=== PATIENT | female | born 1985 | race Caucasian/White ===

== ENCOUNTER 2017-03-07 11:00 | Outpatient (RCR) | payer OTHER, MEDICAID ==
--- NOTE | 2017-02-06 12:29 | Diagnostic Imaging Report ---
INDICATION: Gestational diabetes. TECHNIQUE: Multiple real-time grayscale images were obtained over the gravid uterus. COMPARISON: No prior examinations are available for comparison. FINDINGS: There is a single living intrauterine in a cephalic presentation. The placenta is posterior. There is no previa. The amniotic fluid index is 7.2. The biometry correlates with a gestational age of 32 weeks 6 days. The heart rate is 133 beats per minute. biophysical profile score is 8/8. Biometrical measurements are as follows: Biparietal 8.2 cm, age 32 weeks 6 days. Head circumference 29.6 cm, age 32 weeks 6 days. Abdominal circumference 28.4 cm, age 32 weeks 4 days. Femur length 6.3 cm, age 32 weeks 5 days. Sonographic estimate age: 32 weeks 6 days. Sonographic estimated date of delivery: 03/28/17. Estimated Weight: 2005 gm (+/- 293 gm). LMP percentile: 32%. heart rate: 133 beats per minute. number: 1 of 1. IMPRESSION: 1. Single living intrauterine with sonographically estimated gestational age of 32 weeks 6 days and estimated date of confinement of March 28, 2017. 2. Normal biophysical profile score of 8/8. Dictated by: Dictated on workstation # [id number]
--- NOTE | 2017-02-13 16:11 | Diagnostic Imaging Report ---
INDICATION: Gestational diabetes and biophysical profile assessment. TECHNIQUE: Multiple real-time grayscale images were obtained over the gravid uterus. COMPARISON: 02/06/2017 FINDINGS: heart rate is 128 beats per minute. The placenta is fundal. No placenta previa. position is cephalic. The TI is 7.4 cm. This is similar to 02/06/2017. Biophysical profile parameters are all met for a total of 8 out of 8. The maternal adnexa are obscured. Biometrical measurements are as follows: Biparietal 8.58 cm, age 34 weeks 5 days. Head circumference 30.86 cm, age 30.86 weeks 34 days. Abdominal circumference 4 cm, age 29.36 weeks 33 days. Femur length 3 cm, age 6.41 weeks 33 days. Sonographic estimate age: 34 weeks 0 days. Sonographic estimated date of delivery: 03-27-17. Estimated Weight: 2211 gm (+/- 323 gm). LMP percentile: 33%. heart rate: 1 beats per minute. number: 1 of 1. IMPRESSION: Biophysical profile parameters are all met with total score of 8 out of 8. Dictated by: Dictated on workstation # [id number]
--- NOTE | 2017-02-20 15:25 | Diagnostic Imaging Report ---
INDICATION: Followup growth. Gestational diabetes. TECHNIQUE: Multiple real-time grayscale images were obtained over the gravid uterus. COMPARISON: 02/13/2017 FINDINGS: heart rate is 128 beats per minute. The position is cephalic. The placenta is to the right side and no placenta previa is seen. Amniotic fluid index is 7.6 cm. Biophysical profile criteria are all met with total score of 8 out of 8. The maternal adnexa are obscured by the gravid uterus. Biometrical measurements are as follows: Biparietal 8.68 cm, age 35 weeks 1 days. Head circumference 32.07 cm, age 36 weeks 2 days. Abdominal circumference 31.27 cm, age 35 weeks 2 days. Femur length 6.52 cm, age 33 weeks 5 days. Sonographic estimate age: 35 weeks 1 days. Sonographic estimated date of delivery: 03/26/2017. Estimated Weight: 2534 gm (+/- 370 gm). LMP percentile: 46%. heart rate: 128 beats per minute. number: 1 of 1. IMPRESSION: Total biophysical profile score is 8 out of 8. Dictated by: Dictated on workstation # [id number]
--- NOTE | 2017-02-27 13:42 | Diagnostic Imaging Report ---
OB ultrasound. Biophysical profile. Findings: heart rate is 133 beats per minutes. The TI is 6.6 CM. The position is cephalic. The placenta is fundal. No placenta previa. Biophysical profile parameters are all met with total score of 8 out of 8. Impression: Total biophysical profile score is 8 out of 8. The amniotic fluid index is near the lower limits of normal. Dictated by: Dictated on workstation # [id number]
--- NOTE | 2017-03-07 12:43 | Diagnostic Imaging Report ---
INDICATION: Gestational diabetes mellitus. TECHNIQUE: Multiple real-time grayscale images were obtained over the gravid uterus. Fetus observed for purposes of biophysical profile assessment. COMPARISON: 02/20/2017. FINDINGS: Single viable intrauterine , currently in cephalic presentation. The placenta is along the anterior fundal aspect without evidence for previa. There is presence of oligohydramnios with an index at 4.77 cm. This is decreased from prior study. There is otherwise normal biophysical profile scoring 8 out of 8. Biometrical measurements are as follows: Biparietal 8.8 cm, age 35 weeks 3 days. Head circumference 31.9 cm, age 36 weeks 0 days. Abdominal circumference 32.7 cm, age 36 weeks 5 days. Femur length 7.2 cm, age 36 weeks 5 days. Sonographic estimate age: 36 weeks 2 days. Sonographic estimated date of delivery: 04/02/17. Estimated Weight: 2925 gm (+/- 427 gm). LMP percentile: 39%. heart rate: 147 beats per minute. number: 1 of 1. IMPRESSION: 1. Single viable intrauterine in cephalic presentation. 2. Normal biophysical profile scoring 8 out of 8. 3. Presence of borderline oligohydramnios, decreased from prior study. Dictated by: Dictated on workstation # [id number]
[2017-03-08] MEDS ORDERED: PREN-142 PO (22:32)
[2017-03-08] MEDS ORDERED: FERR-84 PO (22:34)
[2017-03-08] MEDS ORDERED: PERM1LIQ MC (22:35)
[2017-03-08] MEDS ORDERED: GLYB2.5T4 PO (22:36)
[2017-03-08] MEDS ORDERED: METF500T4 PO (22:37)
[2017-03-08] MEDS ORDERED: HYDR-700 PO (22:38)
[2017-03-09] MEDS ORDERED: DOCU100C37 PO (09:01)
[2017-03-09] MEDS ORDERED: Hydrocodone Bit/Acetaminophen PO (09:01)
[2017-03-09] MEDS ORDERED: IBUP-1780 PO (09:01)
== END 2017-05-07 | disposition home or self-care (01) ==
LOC: RAD 11:00
PROVIDERS: ATTEND Obstetrics & Gynecology
DX: O24.410 Gestational diabetes mellitus in pregnancy, diet controlled (principal); Z3A.32 32 weeks gestation of pregnancy
CPT/HCPCS: 76805; 76819

== ENCOUNTER 2017-03-08 17:56 | Inpatient (IN) | payer OTHER, MEDICAID ==
[~2017-03-08] VITALS: Ht 152.4 cm; Wt 84.8 kg
[2017-03-08 20:40] VITALS: BP 114/65
[2017-03-08 21:19] LABS: BASOPHILS % (AUTO) 0 % (0-10); EOSINOPHILS # (AUTO) 0.2 10^3/uL (0.0-0.3); EOSINOPHILS % (AUTO) 2 % (0-10); HEMATOCRIT 33 % (35-52); HEMOGLOBIN 11.6 G/DL (11.5-16.0); LYMPHOCYTES % (AUTO) 18 % (12-44); MEAN CORPUSCULAR HEMOGLOBIN 31 PG (25-34); MEAN CORPUSCULAR HGB CONC 36 G/DL (32-36); MEAN CORPUSCULAR VOLUME 86 FL (80-99); MONOCYTES # (AUTO) 0.6 X 10^3 (0.0-1.0); MONOCYTES % (AUTO) 5 % (0-12); NEUTROPHILS # (AUTO) 8.5 X 10^3 (1.8-7.8); NEUTROPHILS % (AUTO) 75 % (42-75); PLATELET COUNT 339 10^3/uL (130-400); RED CELL DISTRIBUTION WIDTH 13.9 % (10.0-14.5); WHITE BLOOD COUNT 11.3 10^3/uL (4.3-11.0)
[2017-03-08] MEDS: NS IV 1000 ML 1,000 ML IV SCH (21:22)
[2017-03-08 21:31] LABS: ALANINE AMINOTRANSFERASE 15 U/L (0-55); ALBUMIN 3.5 GM/DL (3.2-4.5); ALKALINE PHOSPHATASE 133 U/L (40-136); BILIRUBIN,TOTAL 0.4 MG/DL (0.1-1.0); BUN/CREATININE RATIO 14; CALCIUM 9.4 MG/DL (8.5-10.1); CARBON DIOXIDE 18 MMOL/L (21-32); CHLORIDE 106 MMOL/L (98-107); CREATININE SERUM 0.63 MG/DL (0.60-1.30); GFR ESTIMATED > 60; GLUCOSE 98 MG/DL (70-105); POTASSIUM 3.7 MMOL/L (3.6-5.0); SODIUM 137 MMOL/L (135-145); TOTAL PROTEIN 7.3 GM/DL (6.4-8.2)
[2017-03-08] MEDS ORDERED: PREN-142 PO (22:32)
[2017-03-08] MEDS ORDERED: FERR-84 PO (22:34)
[2017-03-08] MEDS ORDERED: PERM1LIQ MC (22:35)
[2017-03-08] MEDS ORDERED: GLYB2.5T4 PO (22:36)
[2017-03-08] MEDS ORDERED: METF500T4 PO (22:37)
[2017-03-08] MEDS ORDERED: HYDR-700 PO (22:38)
[2017-03-09 00:10] VITALS: BP 118/63
[2017-03-09 04:50] VITALS: BP 107/59
[2017-03-09] MEDS: NS IV 1000 ML 1,000 ML IV SCH ×2 (05:00→12:37)
[2017-03-09] MEDS ORDERED: CITRIC ACID/SOB CIT (BICITRA) 30 ML UDC ONE (07:22)
[2017-03-09] MEDS ORDERED: FAMOTIDINE 20MG/2ML IV (PEPCID) ONE (07:22)
[2017-03-09] MEDS ORDERED: ceFAZolin 2 GM/50 ML NS 50 ML ONE (07:22)
[2017-03-09] MEDS ORDERED: METOCLOPRAMIDE INJ 10 MG/2 ML (REGLAN) ONE (07:22)
[2017-03-09] MEDS ORDERED: ONDANSETRON 4 MG/2 ML (SDV) Z0FRAN ONE (07:24)
[2017-03-09] MEDS ORDERED: OXYTOCIN/NORMAL SALINE 1,000 ML IV ONE (07:24)
[2017-03-09] MEDS ORDERED: fentaNYL INJECTION 100 MCG/2 ML AMP ONE (07:25)
--- NOTE | 2017-03-09 07:28 | History & Physical-OB ---
OB - Chief Complaint & HPI Date/Time Date of Admission: Date of Admission: Mar 08, 2017 at 5:56 pm Time Seen by Provider: 07:20 Chief Complaint/History OB-Reason for Admission/Chief: Section Hx : 4 Hx Para: 3 Expected Date of Delivery: Mar 28, 2017 Gestational Age in Weeks: 37 Gestational Age in Days: 2 Indication for : desires repeat Other reason for admission: GDMA2 and Oligohydramnios Admission Nurse Assessment Rev: Yes History of Labs O pos Antibody neg RI RPR NR HBsAg NR HIV NR GC neg GBS neg Allergies and Home Medications Allergies Coded Allergies: No Known Allergies (Verified Allergy, Mild, 11/11/05) Home Medications Ferrous Sulfate 325 Mg Tablet, 325 MG PO DAILY, (Reported) Glyburide 2.5 Mg Tablet, 2.5 MG PO DAILY, (Reported) Hydroxyzine HCl 25 Mg Tablet, 25 MG PO PRN, (Reported) Metformin HCl 500 Mg Tablet, 500 MG PO BID, (Reported) Permethrin 1 Gm Liquid, 1 GM MC ONCE, (Reported) Vit No.124/Iron/FA 1 Each Tablet, 1 EACH PO DAILY, (Reported) OB - History Hx of Present Care: Yes Ultrasounds: Normal mid trimester US, Abnormal US findings (oligohydramnios) Obstetrical Complications: Gestational Diabetes Medical Complications: None Patient Past Medical History n/a Social History/Family History Recent Infectious Disease Expo: No Sexually Transmitted Disease: No Alcohol Use: Denies Use Recreational Drug Use: No OB - Admission Exam Physical Exam Vitals: Vital Signs 03/09/17 04:50 Temp 98.0 Pulse 82 Resp 18 B/P (MAP) 107/59 (75) O2 Delivery Room Air HEENT: NCAT Heart: Rhythm Normal Lungs: Clear Abdomen: Gravid Extremities: Normal Reflexes: Normal Heart Rate: 140's Accelerations: Accelerations Present Decelerations: Variable Decelerations Short Term Variability: Present Wet Process Miller Variability: Average (6-25) Contractions on Admission: 6-10 Minutes Apart Intensity: Mild Labs Laboratory Tests Test 03/08/17 20:40 03/08/17 21:59 03/09/17 06:29 Range/Units White Blood Count 11.3 H 4.3-11.0 10^3/uL Red Blood Count 3.80 L 4.35-5.85 10^6/uL Hemoglobin 11.6 11.5-16.0 G/DL Hematocrit 33 L 35-52 % Mean Corpuscular Volume 86 80-99 FL Mean Corpuscular Hemoglobin 31 25-34 PG Mean Corpuscular Hemoglobin Concent 36 32-36 G/DL Red Cell Distribution Width 13.9 10.0-14.5 % Platelet Count 339 130-400 10^3/uL Mean Platelet Volume 9.0 7.4-10.4 FL Neutrophils (%) (Auto) 75 42-75 % Lymphocytes (%) (Auto) 18 12-44 % Monocytes (%) (Auto) 5 0-12 % Eosinophils (%) (Auto) 2 0-10 % Basophils (%) (Auto) 0 0-10 % Neutrophils # (Auto) 8.5 H 1.8-7.8 X 10^3 Lymphocytes # (Auto) 2.0 1.0-4.0 X 10^3 Monocytes # (Auto) 0.6 0.0-1.0 X 10^3 Eosinophils # (Auto) 0.2 0.0-0.3 10^3/uL Basophils # (Auto) 0.0 0.0-0.1 10^3/uL Sodium Level 137 135-145 MMOL/L Potassium Level 3.7 3.6-5.0 MMOL/L Chloride Level 106 98-107 MMOL/L Carbon Dioxide Level 18 L 21-32 MMOL/L Anion Gap 13 5-14 MMOL/L Blood Urea Nitrogen 9 7-18 MG/DL Creatinine 0.63 0.60-1.30 MG/DL Estimat Glomerular Filtration Rate > 60 BUN/Creatinine Ratio 14 Glucose Level 98 70-105 MG/DL Calcium Level 9.4 8.5-10.1 MG/DL Total Bilirubin 0.4 0.1-1.0 MG/DL Aspartate Amino Transf (AST/SGOT) 17 5-34 U/L Alanine Aminotransferase (ALT/SGPT) 15 0-55 U/L Alkaline Phosphatase 133 40-136 U/L Total Protein 7.3 6.4-8.2 GM/DL Albumin 3.5 3.2-4.5 GM/DL Glucometer 110 96 70-110 MG/DL OB - Assessment/Plan/Diagnosis Assessment Assessment: section Plan Plan: Section Other Plan RLTCS with RRS Discharge Diagnosis Diagnosis: 31 yo @ 37.2 Oligohydramnios GDMA2 GBS neg Family Hx of suspected ov. FLAVIO Mariscal DO Mar 09, 2017 7:28 am
[2017-03-09] MEDS ORDERED: FAMOTIDINE 20MG/2ML IV (PEPCID) IV ONE (07:45)
[2017-03-09] MEDS ORDERED: METOCLOPRAMIDE INJ 10 MG/2 ML (REGLAN) IV ONE (07:45)
[2017-03-09] MEDS ORDERED: INFLUENZA TRIvalent 2017-2018 0.5 ML/45 MCG SYR IM ONE (07:45)
[2017-03-09] MEDS ORDERED: CITRIC ACID/SOB CIT (BICITRA) 30 ML UDC PO ONE (07:45)
[2017-03-09] MEDS ORDERED: LACTATED RINGERS 1,000 ML IV PRN (08:14)
[2017-03-09] MEDS ORDERED: ceFAZolin 2 GM/50 ML NS 50 ML IV ONE (08:15)
[2017-03-09] MEDS ORDERED: TETANUS,DIPTH,PERTUSS P/F (BOOSTRIX) 0.5 ML VIAL IM SCH (08:15)
[2017-03-09] MEDS ORDERED: MEASLES,MUMPS,RUBELLA 1 EA INJ SC SCH (08:15)
[2017-03-09] MEDS ORDERED: KETOROLAC 30 MG/ML VIAL ONE (08:32)
[2017-03-09] MEDS ORDERED: Hydrocodone Bit/Acetaminophen PO (09:01)
[2017-03-09] MEDS ORDERED: DOCU100C37 PO (09:01)
[2017-03-09] MEDS ORDERED: IBUP-1780 PO (09:01)
[2017-03-09] MEDS ORDERED: morphine INJ 10 MG/ML 1ML (SYR OR VIAL) IVP PRN ×2 (09:15→13:15)
[2017-03-09] MEDS ORDERED: diphenhydrAMINE 50 MG/ML INJ (BENADRYL) IV PRN (09:15)
[2017-03-09] MEDS ORDERED: NALOXONE 0.4 MG/ML 1 ML (NARCAN) VIAL IV PRN ×2 (09:15)
[2017-03-09] MEDS ORDERED: METOCLOPRAMIDE INJ 10 MG/2 ML (REGLAN) IV PRN (09:15)
[2017-03-09] MEDS ORDERED: ONDANSETRON 4 MG/2 ML (SDV) Z0FRAN IV PRN (09:15)
--- NOTE | 2017-03-09 10:08 | OPERATIVE REPORT ---
DATE OF SERVICE: PREOPERATIVE DIAGNOSIS: 1. A 31-year-old G4, P3 at 37 weeks and 2 days gestation. 2. Oligohydramnios. 3. GDMA 2. 4. Obesity. POSTOPERATIVE DIAGNOSIS: 1. A 31-year-old G4, P3 at 37 weeks and 2 days gestation. 2. Oligohydramnios. 3. GDMA 2. 4. Obesity. PROCEDURE: Repeat low transverse section with bilateral risk reducing salpingectomy. SURGEON: Dr. Haseeb Rollins. ANESTHESIA: Spinal. ESTIMATED BLOOD LOSS: 300 mL. URINE OUTPUT: 200 mL cleared in the procedure. FLUIDS: 1700 mL lactated Ringer solution. FINDINGS: A live female infant weighing 6 pounds 3 ounces, Apgars of 8 and 9. Grossly normal appearing bilateral ovaries with adhesions to those ovaries by fallopian tubes. Dense pelvic peritoneal scar tissue, dense anterior abdominal wall scar tissue. SPECIMEN SENT: Placenta and bilateral fallopian tubes. INDICATIONS FOR PROCEDURE: This 31-year-old female is a patient of my partner Dr. Corcoran, who she has been following throughout her with history of diabetes. She was started on glyburide for blood sugar management; however, there was intermittent patient compliance of managing blood sugars and monitoring blood sugars. Overall we felt that the patient had fairly good blood sugar control; however biophysical profile this week revealed her fluid level to be below 5 cm. Given her diagnosis of oligohydramnios and greater than 37 weeks as well as gestational diabetic, I recommended proceeding with delivery at this point rather than wait until 38 weeks due to this new finding of oligohydramnios. The risk of the procedure was discussed with the patient in detail preoperatively including risk of bleeding, infection damaging any surrounding structures including but not limited to bowel, bladder, ureter kidneys, risk for postoperative hematoma formation, risk from anesthesia and the loss of fertility with removal of fallopian tubes. The patient is agreeable to this. Consent was obtained in the preoperative area and the patient was taken to the operating room. OP REPORT DETAIL: Once in the operating room, spinal analgesia was found to be adequate. She was placed in supine position with a leftward tilt and prepped and draped in normal sterile fashion. Anesthesia was tested. A time out was performed. A Pfannenstiel skin incision was made through the previous existing scar using knife and carried to underlying fascia using Bovie cautery. The fascial incision extended laterally using Bovie cautery. The superior aspect of fascial incision was then grasped with Lety clamps, tented up and dissected off feeling rectus muscles. Inferior aspect of the fascial incision was then grasped with Lety clamps, tented upward and dissected off the underlying rectus muscles. Rectus muscles were then dissected down the midline using Metzenbaum scissors which allows me to visualize the peritoneum. There is an irregular entry site of the peritoneum due to previous peritoneal scar tissue. I take this is high as possible to avoid encountering the bladder. Once adequate peritoneal access was obtained I placed an Mariusz ring retractor into the peritoneal incision, which offers excellent lateral sidewall retraction and allows me to delineate my margins of the bladder. I then make a low transverse incision through the vesicouterine peritoneum using the knife and bluntly dissected off the lower uterine segment clearing the bladder from my dissection plane, I then proceed with myotomy until membranes are visualized, at which point I continued the uterine incision laterally and superiorly using bandage scissors. Amniotomy was performed. Clear fluid is noted; however, there is a small to scant amount of clear fluid. The was found in the vertex presentation with gentle fundal pressure, the 's head elevated up to the incision where it is delivered through the incision. The nares and oropharynx were bulb suctioned. Anterior and posterior shoulders were delivered. Infant is then brought to the operative field. The cord was doubly clamped and cut and was handed off to the waiting nurses in attendance. Cord blood was collected, 3-vessel cord with intact placenta was delivered spontaneously thereafter. IV Pitocin was initiated to facilitate uterine contraction and uterus fundus became firmer with bimanual massage. The uterus was then exteriorized and cleared of all endometrial clots and debris. I then closed the uterine incision using 0 Vicryl suture in running locked fashion. Second layer of imbricating 0 Monocryl was placed. Excellent hemostasis was noted after doing this. I then took my attention to the fallopian tubes and performed the following dissection bilaterally, at the proximal isthmic portion I transected using the LigaSure device and take this down the mesosalpinx to the distal ampullary connection site and transect all of this using the LigaSure device bipolar cauterizing and transecting as I go. Once both fallopian tubes were then removed, there was no active bleeding noted from those dissection planes as well. The uterus was placed back within the pelvis where once again there is no active bleeding noted from any my dissection planes. I copiously irrigated the pelvis using normal saline. Once this was done, I placed Interceed anti-adhesion material from my low transverse incision and removed the Mariusz ring retractor and closed the peritoneum and the rectus muscles in one layer using 2-0 Vicryl suture in a running fashion. The fascia was reapproximated using 0 Vicryl suture in running fashion. Subcutaneous tissue was reapproximated using 3-0 plain in interrupted subcutaneous stitch and the skin reapproximated using 4-0 Monocryl in a running subcuticular. Dermabond was applied to incision. A sterile dressing is adhesed with white tape. The patient tolerated the procedure well and sent to recovery area in stable condition. Lap and sponge counts correct at the end of the procedure. Instrument count was correct as well. Two grams of Ancef were given preoperatively for infection prophylaxis. Job ID: [id number] DocumentID: [id number] Dictated Date: 03/09/2017 08:51:33 Shaker Tender Date: 03/09/2017 10:07:37 Dictated By: HASEEB ROLLINS DO
[2017-03-09 11:00] VITALS: BP 94/59
[2017-03-09 11:40] VITALS: BP 105/66
[2017-03-09] MEDS: DOCUSATE SODIUM 100 MG (COLACE) CAP PO SCH ×2 (12:06→21:50)
[2017-03-09] MEDS: HYDROcodone/APAP 5 MG/325 MG (LORTAB) TAB PO PRN (12:07)
[2017-03-09] MEDS ORDERED: fentaNYL INJECTION 100 MCG/2 ML AMP IVP PRN (13:15)
[2017-03-09] MEDS ORDERED: MEPERIDINE (DEMEROL) INJ 50 MG/ML IVP PRN (13:15)
[2017-03-09] MEDS ORDERED: ONDANSETRON 4 MG/2 ML (SDV) Z0FRAN IVP PRN (13:15)
[2017-03-09] MEDS ORDERED: CATHETER FLUSH 10 ML SYR IV SCH (14:00)
[2017-03-09 16:00] VITALS: BP 98/58
[2017-03-09] MEDS: KETOROLAC 30 MG/ML VIAL IVP SCH (19:57)
[2017-03-09 21:50] VITALS: BP 95/55
[2017-03-10 02:00] VITALS: BP 98/58
[2017-03-10] MEDS: KETOROLAC 30 MG/ML VIAL IVP SCH (02:06)
[2017-03-10 06:07] LABS: BASOPHILS % (AUTO) 0 % (0-10); EOSINOPHILS # (AUTO) 0.2 10^3/uL (0.0-0.3); EOSINOPHILS % (AUTO) 2 % (0-10); HEMATOCRIT 29 % (35-52); HEMOGLOBIN 10.1 G/DL (11.5-16.0); LYMPHOCYTES # (AUTO) 1.4 X 10^3 (1.0-4.0); LYMPHOCYTES % (AUTO) 14 % (12-44); MEAN CORPUSCULAR HEMOGLOBIN 30 PG (25-34); MEAN CORPUSCULAR HGB CONC 35 G/DL (32-36); MEAN CORPUSCULAR VOLUME 87 FL (80-99); MEAN PLATELET VOLUME 8.9 FL (7.4-10.4); MONOCYTES # (AUTO) 0.6 X 10^3 (0.0-1.0); MONOCYTES % (AUTO) 6 % (0-12); NEUTROPHILS # (AUTO) 7.8 X 10^3 (1.8-7.8); NEUTROPHILS % (AUTO) 78 % (42-75); PLATELET COUNT 301 10^3/uL (130-400); RED BLOOD COUNT 3.34 10^6/uL (4.35-5.85)
[2017-03-10 06:29] VITALS: BP 108/74
[2017-03-10 08:50] VITALS: BP 110/75
[2017-03-10] MEDS: IBUPROFEN 800 MG (MOTRIN) TAB PO SCH ×2 (09:35→16:50)
[2017-03-10] MEDS: DOCUSATE SODIUM 100 MG (COLACE) CAP PO SCH ×2 (09:35→20:39)
[2017-03-10] MEDS: HYDROcodone/APAP 5 MG/325 MG (LORTAB) TAB PO PRN ×2 (09:37→20:39)
--- NOTE | 2017-03-10 10:11 | Anesthesia-Regional Post-Op ---
Regional Patient Condition Mental Status: Alert, Oriented x3 Circulation: Same as Pre-Op Headache: Absent Sensation: Full Recovery Motor Block: Absent Post Op Complications Complications None Follow Up Care/Instructions Patient Instructions None needed. Anesthesia/Patient Condition Patient is doing well, no complaints, stable vital signs, no apparent adverse anesthesia problems. No complications reported per nursing. CESAR COLLINS CRNA Mar 10, 2017 10:11
--- NOTE | 2017-03-10 11:40 | Progress Note-Standard ---
Standard Progress Note Progress Notes/Assess & Plan Date Seen by Provider: Mar 10, 2017 Time Seen by Provider: 08:55 Progress/Assessment & Plan Patient doing well postop day 1 repeat low transverse section with bilateral risk reducing salpingectomy. The patient reports pain is well- controlled with oral pain medications. She is ambulating and voiding freely. Lochia is moderate to light. Vital Sign - Last 24 Hours 03/09/17 03/09/17 03/09/17 03/09/17 11:40 12:37 16:00 21:50 Temp 98.2 98.2 98.2 97.6 Pulse 77 77 90 Resp 18 18 18 B/P (MAP) 105/66 (79) 98/58 (71) 95/55 (68) Pulse Ox 100 100 96 O2 Delivery Room Air Room Air Room Air 03/10/17 03/10/17 02:00 06:29 Temp 97.7 97.6 Pulse 66 77 Resp 18 18 B/P (MAP) 98/58 (71) 108/74 (85) Pulse Ox 97 97 O2 Delivery Room Air Room Air Intake and Output 03/09/17 03/09/17 03/10/17 15:00 23:00 07:00 Intake Total 1050 ml 1000 ml Output Total 200 ml 600 ml Balance 850 ml 400 ml Incision is clean dry and intact Laboratory Tests Test 03/09/17 12:02 03/10/17 05:45 03/10/17 06:14 Range/Units Glucometer 49 *L 101 70-110 MG/DL White Blood Count 10.0 4.3-11.0 10^3/uL Red Blood Count 3.34 L 4.35-5.85 10^6/uL Hemoglobin 10.1 L 11.5-16.0 G/DL Hematocrit 29 L 35-52 % Mean Corpuscular Volume 87 80-99 FL Mean Corpuscular Hemoglobin 30 25-34 PG Mean Corpuscular Hemoglobin Concent 35 32-36 G/DL Red Cell Distribution Width 14.0 10.0-14.5 % Platelet Count 301 130-400 10^3/uL Mean Platelet Volume 8.9 7.4-10.4 FL Neutrophils (%) (Auto) 78 H 42-75 % Lymphocytes (%) (Auto) 14 12-44 % Monocytes (%) (Auto) 6 0-12 % Eosinophils (%) (Auto) 2 0-10 % Basophils (%) (Auto) 0 0-10 % Neutrophils # (Auto) 7.8 1.8-7.8 X 10^3 Lymphocytes # (Auto) 1.4 1.0-4.0 X 10^3 Monocytes # (Auto) 0.6 0.0-1.0 X 10^3 Eosinophils # (Auto) 0.2 0.0-0.3 10^3/uL Basophils # (Auto) 0.0 0.0-0.1 10^3/uL Diagnosis: Day one repeat low transverse section with bilateral risk reducing salpingectomy Plan: Continue routine postoperative and care Anticipate discharge tomorrow pending clinical stability FLAVIO ROLLINS DO Mar 10, 2017 11:40 am
[2017-03-10 13:20] VITALS: BP 113/74
[2017-03-10 20:30] VITALS: BP 120/77
[2017-03-11 03:00] VITALS: BP 108/65
[2017-03-11] MEDS: IBUPROFEN 800 MG (MOTRIN) TAB PO SCH ×2 (05:40→12:30)
[2017-03-11] MEDS ORDERED: INFLUENZA TRIvalent 2017-2018 0.5 ML/45 MCG SYR IM ONE (09:59)
[2017-03-11] MEDS: DOCUSATE SODIUM 100 MG (COLACE) CAP PO SCH (10:05)
[2017-03-11] MEDS: HYDROcodone/APAP 5 MG/325 MG (LORTAB) TAB PO PRN (10:05)
[2017-03-11 10:09] VITALS: BP 109/72
[2017-03-11] MEDS ORDERED: NEO/POLY/BAC (NEOSPORIN) OINT 15 GM TUBE TOP PRN (10:15)
--- NOTE | 2017-03-11 10:22 | Progress Note-Standard ---
Standard Progress Note Progress Notes/Assess & Plan Date Seen by Provider: Mar 11, 2017 Time Seen by Provider: 09:50 Progress/Assessment & Plan Patient doing well postop day 2 repeat low transverse section with bilateral risk reducing salpingectomy. The patient reports pain is well- controlled with oral pain medications. She is ambulating and voiding freely. Lochia is moderate to light. Vital Sign - Last 24 Hours 03/10/17 03/10/17 03/11/17 13:20 20:30 03:00 Temp 97.8 96.9 97.5 Pulse 78 75 72 Resp 18 18 18 B/P (MAP) 113/74 (87) 120/77 (91) 108/65 (79) O2 Delivery Room Air Room Air Room Air Incision is clean dry and intact Diagnosis: Day two repeat low transverse section with bilateral risk reducing salpingectomy Plan: Continue routine postoperative and care Anticipate discharge today FLAVIO ROLLINS DO Mar 11, 2017 10:22 am
== END 2017-03-11 15:42 | disposition home or self-care (01) | DRG 766 ==
LOC: LDRP 17:56
PROVIDERS: ADMIT Obstetrics & Gynecology; ATTEND Obstetrics & Gynecology
PROC: 0UT70ZZ Resection of Bilateral Fallopian Tubes, Open Approach (ICD-10-PCS; 2017-03-09)
PROC: 10D00Z1 Extraction of Products of Conception, Low, Open Approach (ICD-10-PCS; principal; 2017-03-09 07:52)
DX: O41.03X0 Oligohydramnios, third trimester, not applicable or unspecified (principal); O24.425 Gestational diabetes mellitus in childbirth, controlled by oral hypoglycemic drugs; O34.211 Maternal care for low transverse scar from previous cesarean delivery; Z37.0 Single live birth; Z40.03 Encounter for prophylactic removal of fallopian tube(s); Z3A.37 37 weeks gestation of pregnancy; Z23 Encounter for immunization
CPT/HCPCS: 36415; 80053; 82962; 85025; 86850; 86900; 86901; 90715; 94664

== ENCOUNTER 2018-07-30 12:25 | Emergency (ER) | payer BC, MEDICAID ==
[~2018-07-30] VITALS: Ht 175.3 cm; Wt 77.1 kg
[~2018-07-30 12:25] MED LIST: DOCU100C37 PO; FERR-84 PO; GLYB2.5T4 PO; HYDR-700 PO; Hydrocodone Bit/Acetaminophen PO; IBUP-1780 PO; METF-397 PO; PERM1LIQ MC; PREN-142 PO
--- OUTSIDE RECORDS SUMMARY | 2018-07-30 12:38 | XMS REPORT ---
Author Author HANSENTOR Rubin Organization [facility] Address [address] [place] [address] Care Team Providers Care Dope House Operator Helper Name Role Phone TOR HANSEN Unavailable PROBLEMS Type Condition ICD9-CM Code ZPH08-JC Code Onset Dates Condition Status SNOMED Code Problem History of gestational diabetes Z86.32 Active 582711879 Problem History of gestational diabetes mellitus (GDM), not currently Z86.32 Active 128339305 Problem Elevated LDL cholesterol level E78.00 Active 744377236 Problem Generalized anxiety disorder F41.1 Active 22872419 Problem Acute stress reaction F43.0 Active [id number] ALLERGIES No Information ENCOUNTERS Encounter Location Date Diagnosis [facility] [id number] [place] [phone] Sep, [facility] [id number] [place] [phone] Aug, [place] [id number] [place] [phone] May, Generalized anxiety disorder F41.1 ; Family history of diabetes mellitus Z83.3 and History of gestational diabetes mellitus (GDM), not currently Z86.32 [facility] [id number] [place] [phone] May, Generalized anxiety disorder F41.1 ; Family history of diabetes mellitus Z83.3 and History of gestational diabetes mellitus (GDM), not currently Z86.32 [place] [id number] [place] [phone] Apr, Generalized anxiety disorder F41.1 [place] [id number] [place] [phone] Apr, Acute stress reaction F43.0 and Generalized anxiety disorder F41.1 [facility] [address] [facility] [id number] [place] [phone] 15 Nov, 2016 IMMUNIZATIONS No Known Immunizations SOCIAL HISTORY Never Assessed REASON FOR VISIT Lab (walk-in) PLAN OF CARE VITAL SIGNS MEDICATIONS Unknown Medications RESULTS No Results PROCEDURES Procedure Date Ordered Result Body Site Hemoglobin Test Send Out 0 dollar May 17, 2017 COMPLETE CBC W/AUTO DIFF WBC May 17, 2017 ASSAY OF INSULIN May 17, 2017 COMPREHEN METABOLIC PANEL May 17, 2017 ASSAY THYROID STIM HORMONE May 17, 2017 LIPID PANEL May 17, 2017 INSTRUCTIONS MEDICATIONS ADMINISTERED No Known Medications MEDICAL (GENERAL) HISTORY Type Description Date Medical History Anemia with Medical History Cancer in situ of cervix- 2015- was treated Medical History gestational diabetes w/4th child Surgical History Hospitalization History Childbirth
--- OUTSIDE RECORDS SUMMARY | 2018-07-30 12:38 | XMS REPORT ---
Author Author HANSENTOR Rubin Organization [facility] [place] Address [address] [place] [address] Care Team Providers Care Cupola Patcher Helper Name Role Phone TOR HANSEN Unavailable PROBLEMS Type Condition ICD9-CM Code [id number] Code Onset Dates Condition Status SNOMED Code Problem History of gestational diabetes Z86.32 Active 270770031 Problem History of gestational diabetes mellitus (GDM), not currently Z86.32 Active 063105347 Problem Elevated LDL cholesterol level E78.00 Active 137514021 Problem Generalized anxiety disorder F41.1 Active 64356545 Problem Acute stress reaction F43.0 Active [id number] ALLERGIES No Known Allergies ENCOUNTERS Encounter Location Date Diagnosis [facility] [place] [id number] [place] [phone] Sep, [facility] [place] [id number] [place] [phone] Aug, [place] [id number] [place] [phone] May, Generalized anxiety disorder F41.1 ; Family history of diabetes mellitus Z83.3 and History of gestational diabetes mellitus (GDM), not currently Z86.32 [facility] [place] [id number] [place] [phone] May, Generalized anxiety disorder F41.1 ; Family history of diabetes mellitus Z83.3 and History of gestational diabetes mellitus (GDM), not currently Z86.32 [facility] [place] [id number] [place] [phone] Apr, Generalized anxiety disorder F41.1 [place] [id number] [place] [phone] 05 Feb, 2018 Acute stress reaction F43.0 and Generalized anxiety disorder F41.1 [facility] [address] [facility] [id number] [place] [address] 15 Nov, 2016 IMMUNIZATIONS No Known Immunizations SOCIAL HISTORY Never Assessed REASON FOR VISIT Establish Care: transferring care from physician in [place] [facility], Delivered 2 months ago, Dr. Corcoran took care of deliver PLAN OF CARE Activity Details Follow Up 3 Months, prn Reason:CHM/ VITAL SIGNS Height 64 in 2017-05-16 Weight 177 lbs 2017-05-16 Temperature 97.3 degrees Fahrenheit 2017-05-16 Heart Rate 72 bpm 2017-05-16 Respiratory Rate 18 2017-05-16 Oximetry 99 % 2017-05-16 BMI 30.38 kg/m2 2017-05-16 Blood pressure systolic 104 mmHg 2017-05-16 Blood pressure diastolic 68 mmHg 2017-05-16 MEDICATIONS Medication Instructions Dosage Frequency Start Date End Date Duration Status + Complete Multi 0.267 & 373 MG Active Iron 325 (65 Fe) MG Orally Once a day 1 tablet 24h Active RESULTS No Results PROCEDURES No Known procedures INSTRUCTIONS MEDICATIONS ADMINISTERED No Known Medications MEDICAL (GENERAL) HISTORY Type Description Date Medical History Anemia with Medical History Cancer in situ of cervix- 2015- was treated Medical History gestational diabetes w/4th child Surgical History Hospitalization History Childbirth
--- OUTSIDE RECORDS SUMMARY | 2018-07-30 12:38 | XMS REPORT ---
Author Author MONA PATEL [facility] Address [address] [place] [address] Care Team Providers Care Captain/Check Airman Name Role Phone MONA PATEL Unavailable PROBLEMS Type Condition ICD9-CM Code [id number] Code Onset Dates Condition Status SNOMED Code Problem History of gestational diabetes Z86.32 Active 902562142 Problem History of gestational diabetes mellitus (GDM), not currently Z86.32 Active 678938248 Problem Elevated LDL cholesterol level E78.00 Active 814005739 Problem Generalized anxiety disorder F41.1 Active 19340861 Problem Acute stress reaction F43.0 Active 40560845 ALLERGIES No Information ENCOUNTERS Encounter Location Date Diagnosis [facility] [id number] [place] [phone] Sep, [facility] [id number] [place] [phone] Aug, [place] [id number] [place] [phone] May, Generalized anxiety disorder F41.1 ; Family history of diabetes mellitus Z83.3 and History of gestational diabetes mellitus (GDM), not currently Z86.32 [facility] [id number] [place] [phone] May, Generalized anxiety disorder F41.1 ; Family history of diabetes mellitus Z83.3 and History of gestational diabetes mellitus (GDM), not currently Z86.32 [facility] [id number] [place] [phone] Apr, Generalized anxiety disorder F41.1 [place] [id number] [place] [phone] Apr, Acute stress reaction F43.0 and Generalized anxiety disorder F41.1 [facility] [address] [facility] [id number] [place] [address] 15 Nov, 2016 IMMUNIZATIONS No Known Immunizations SOCIAL HISTORY Never Assessed REASON FOR VISIT [place] PLAN OF CARE Activity Details Follow Up prn Reason:Patient will request the support VITAL SIGNS MEDICATIONS Unknown Medications RESULTS No Results PROCEDURES Procedure Date Ordered Result Body Site Psychotherapy, patient &/family, 30 minutes, new patient Apr 17, 2017 INSTRUCTIONS MEDICATIONS ADMINISTERED No Known Medications MEDICAL (GENERAL) HISTORY Type Description Date Medical History Anemia with Medical History Cancer in situ of cervix- 2016- was treated Medical History gestational diabetes w/4th child Surgical History Hospitalization History Childbirth
--- OUTSIDE RECORDS SUMMARY | 2018-07-30 12:38 | XMS REPORT ---
Author Author MONA PATEL [facility] Address [address] [place] [address] Care Team Providers Care Electrical Accessories Assembler Name Role Phone MONA PATEL Unavailable PROBLEMS Type Condition ICD9-CM Code [id number] Code Onset Dates Condition Status SNOMED Code Problem History of gestational diabetes Z86.32 Active 429814685 Problem History of gestational diabetes mellitus (GDM), not currently Z86.32 Active 471127876 Problem Elevated LDL cholesterol level E78.00 Active 755087645 Problem Generalized anxiety disorder F41.1 Active 75299881 Problem Acute stress reaction F43.0 Active 53262079 ALLERGIES No Information ENCOUNTERS Encounter Location Date Diagnosis [facility] [id number] [place] [phone] Sep, [facility] [id number] [place] [phone] Aug, [place] [id number] [place] [phone] May, Generalized anxiety disorder F41.1 ; Family history of diabetes mellitus Z83.3 and History of gestational diabetes mellitus (GDM), not currently Z86.32 [facility] [id number] [place] [phone] May, Generalized anxiety disorder F41.1 ; Family history of diabetes mellitus Z83.3 and History of gestational diabetes mellitus (GDM), not currently Z86.32 [facility] [id number] [place] [address] Apr, Generalized anxiety disorder F41.1 [place] [id number] [place] [phone] Apr, Acute stress reaction F43.0 and Generalized anxiety disorder F41.1 [facility] [address] [facility] [id number] [address] 15 Nov, 2016 IMMUNIZATIONS No Known Immunizations SOCIAL HISTORY Never Assessed REASON FOR VISIT [place] PLAN OF CARE Activity Details Follow Up prn Reason: VITAL SIGNS MEDICATIONS Unknown Medications RESULTS No Results PROCEDURES Procedure Date Ordered Result Body Site Psychotherapy, patient &/family, 30 minutes, new patient May 10, 2017 INSTRUCTIONS MEDICATIONS ADMINISTERED No Known Medications MEDICAL (GENERAL) HISTORY Type Description Date Medical History Anemia with Medical History Cancer in situ of cervix- 2015- was treated Medical History gestational diabetes w/4th child Surgical History Hospitalization History Childbirth
--- OUTSIDE RECORDS SUMMARY | 2018-07-30 12:38 | XMS REPORT ---
Author Author KELLY CARSON [facility] Address [address] [place] [address] Care Team Providers Care Patient Relations Manager Name Role Phone YAMILETH KELLY Unavailable PROBLEMS Type Condition ICD9-CM Code [id number] Code Onset Dates Condition Status SNOMED Code Problem History of gestational diabetes Z86.32 Active 052943118 Problem History of gestational diabetes mellitus (GDM), not currently Z86.32 Active 454880933 Problem Elevated LDL cholesterol level E78.00 Active 301949518 Problem Generalized anxiety disorder F41.1 Active 13802834 Problem Acute stress reaction F43.0 Active 96726703 ALLERGIES No Information ENCOUNTERS Encounter Location Date Diagnosis [place] [id number] [place] [phone] Sep, [place] [id number] [place] [phone] Aug, [place] [id number] [place] [phone] May, Generalized anxiety disorder F41.1 ; Family history of diabetes mellitus Z83.3 and History of gestational diabetes mellitus (GDM), not currently Z86.32 [place] [id number] [place] [phone] May, Generalized anxiety disorder F41.1 ; Family history of diabetes mellitus Z83.3 and History of gestational diabetes mellitus (GDM), not currently Z86.32 [place] [id number] [place] [address] Apr, Generalized anxiety disorder F41.1 [place] [address] [place] [phone] Apr, Acute stress reaction F43.0 and Generalized anxiety disorder F41.1 [facility] [address] [facility] [id number] [place] [address] 15 Nov, 2016 IMMUNIZATIONS No Known Immunizations SOCIAL HISTORY Never Assessed REASON FOR VISIT Presumptive Eligibility-PW APPROVED PLAN OF CARE VITAL SIGNS MEDICATIONS Unknown Medications RESULTS No Results PROCEDURES No Known procedures INSTRUCTIONS MEDICATIONS ADMINISTERED No Known Medications MEDICAL (GENERAL) HISTORY Type Description Date Medical History Anemia with Medical History Cancer in situ of cervix- 2015- was treated Medical History gestational diabetes w/4th child Surgical History Hospitalization History Childbirth
--- OUTSIDE RECORDS SUMMARY | 2018-07-30 12:38 | XMS REPORT ---
Author Author HANSENTOR Rubin Organization [facility] Address [address] [place] [address] Care Team Providers Care Senior Php Developer Name Role Phone TOR HNASEN Unavailable PROBLEMS Type Condition ICD9-CM Code [id number] Code Onset Dates Condition Status SNOMED Code Problem History of gestational diabetes Z86.32 Active 167445245 Problem History of gestational diabetes mellitus (GDM), not currently Z86.32 Active 856671906 Problem Elevated LDL cholesterol level E78.00 Active 708259096 Problem Generalized anxiety disorder F41.1 Active 17356936 Problem Acute stress reaction F43.0 Active 73751850 ALLERGIES No Information ENCOUNTERS Encounter Location Date Diagnosis [place] [id number] [place] [phone] Aug, [place] [address] [id number] [place] [phone] May, Generalized anxiety disorder F41.1 ; Family history of diabetes mellitus Z83.3 and History of gestational diabetes mellitus (GDM), not currently Z86.32 [place] [id number] [place] [phone] May, Generalized anxiety disorder F41.1 ; Family history of diabetes mellitus Z83.3 and History of gestational diabetes mellitus (GDM), not currently Z86.32 [facility] [id number] [place] [phone] Apr, Generalized anxiety disorder F41.1 [place] [id number] [place] [phone] 05 Apr, 2017 Acute stress reaction F43.0 and Generalized anxiety disorder F41.1 [place] [address] [address] Nov, IMMUNIZATIONS No Known Immunizations SOCIAL HISTORY Never Assessed REASON FOR VISIT Diabetes, was late for an appt, rescheduled and sent refills to pharmacy per Kaci Briones, RN PLAN OF CARE VITAL SIGNS MEDICATIONS Medication Instructions Dosage Frequency Start Date End Date Duration Status + Complete Multi 0.267 & 373 MG Orally Once a day as directed 24h 30 days Active Iron 325 (65 Fe) MG Orally Once a day 1 tablet 24h 30 days Active RESULTS No Results PROCEDURES No Known procedures INSTRUCTIONS MEDICATIONS ADMINISTERED No Known Medications MEDICAL (GENERAL) HISTORY Type Description Date Medical History Anemia with Medical History Cancer in situ of cervix- 2016- was treated Medical History gestational diabetes w/4th child Surgical History Hospitalization History Childbirth
[2018-07-30] MEDS ORDERED: NS IV 1000 ML 1,000 ML IV SCH ×2 (12:45→13:47)
[2018-07-30 13:09] LABS: BASOPHILS % (AUTO) 0 % (0-10); EOSINOPHILS # (AUTO) 0.1 10^3/uL (0.0-0.3); EOSINOPHILS % (AUTO) 1 % (0-10); HEMATOCRIT 38 % (35-52); HEMOGLOBIN 13.1 G/DL (11.5-16.0); LYMPHOCYTES # (AUTO) 2.5 X 10^3 (1.0-4.0); LYMPHOCYTES % (AUTO) 22 % (12-44); MEAN CORPUSCULAR HEMOGLOBIN 29 PG (25-34); MEAN CORPUSCULAR HGB CONC 35 G/DL (32-36); MEAN CORPUSCULAR VOLUME 82 FL (80-99); MEAN PLATELET VOLUME 8.7 FL (7.4-10.4); MONOCYTES # (AUTO) 0.9 X 10^3 (0.0-1.0); MONOCYTES % (AUTO) 8 % (0-12); NEUTROPHILS # (AUTO) 8.1 X 10^3 (1.8-7.8); NEUTROPHILS % (AUTO) 69 % (42-75); PLATELET COUNT 481 10^3/uL (130-400); RED CELL DISTRIBUTION WIDTH 12.9 % (10.0-14.5); WHITE BLOOD COUNT 11.7 10^3/uL (4.3-11.0)
[2018-07-30 13:28] LABS: ALANINE AMINOTRANSFERASE 89 U/L (0-55); ALBUMIN 4.2 GM/DL (3.2-4.5); ALKALINE PHOSPHATASE 223 U/L (40-136); BILIRUBIN,TOTAL 0.7 MG/DL (0.1-1.0); BUN/CREATININE RATIO 14; CALCIUM 9.6 MG/DL (8.5-10.1); CARBON DIOXIDE 20 MMOL/L (21-32); CHLORIDE 104 MMOL/L (98-107); CREATININE SERUM 0.77 MG/DL (0.60-1.30); GFR ESTIMATED > 60; GLUCOSE 120 MG/DL (70-105); POTASSIUM 4.1 MMOL/L (3.6-5.0); SODIUM 137 MMOL/L (135-145); TOTAL PROTEIN 8.9 GM/DL (6.4-8.2)
--- NOTE | 2018-07-30 13:55 | ED Neck-Back Pain/Injury ---
General Chief Complaint: General Problems/Pain Stated Complaint: NECK/BACK PAIN Nursing Triage Note: PT TO TRIAGE BY WHEELCHAIR WITH COMPLAINT OF NECK, BACK, AND RIGHT LEG PAIN. STATES SYMPTOMS STARTED MONDAY. PT STATES SHE IS ALSO HAVING DIZZINESS. PT STATES SHE HAS INCREASED PAIN WHEN MOVING NECK. STATES SHE WAS SHORT OF BREATH ON MONDAY. Nursing Sepsis Screen: No Definite Risk Source of Information: Patient, Family (mom and dad) Exam Limitations: No Limitations History of Present Illness Date Seen by Provider: July 30, 2018 Time Seen by Provider: 13:37 Initial Comments Patient presents to ER by private conveyance with mom and dad and chief complaint of for 5 days now of back pain, subjective fevers malaise swelling and discomfort in the anterior left neck sore throat difficulty with fluids. She says her back pain runs down her low back and into her right leg. When I ask her to point to where runs in her right leg she points to her right lateral anterior gudino where there is a bruise that looks like it's greater than 3-5 days old. She does not have a history of chronic back pain. She does not have any confusion or lethargy or somnolence. No significant medical history. She did have a horizontal on her abdomen as well as tubal ligation. She is not having any abdominal pain or chest pain shortness of breath cough nausea vomiting or diarrhea. She denies any sick contacts or eating/drinking unsafe water sources or food. No travel outside the [facility]. Allergies and Home Medications Allergies Coded Allergies: No Known Allergies (Verified Allergy, Mild, 11/11/05) Home Medications Docusate Sodium 100 Mg Capsule, 100 MG PO BID PRN for CONSTIPATION-1ST LINE Prescribed by: FLAVIO ROLLINS on 03/09/17900 Ferrous Sulfate 325 Mg Tablet, 325 MG PO DAILY, (Reported) Hydroxyzine HCl 25 Mg Tablet, 25 MG PO PRN, (Reported) Ibuprofen 800 Mg Tablet, 800 MG PO Q6HR Prescribed by: FLAVIO ROLLINS on 03/09/17900 Metformin HCl 500 Mg Tablet, 500 MG PO BID, (Reported) Ondansetron 4 Mg Tab.rapdis, 4 MG PO Q6H PRN for NAUSEA/VOMITING-1ST LINE Prescribed by: TIP BIANCHI on 07/30/18 1519 Permethrin 1 Gm Liquid, 1 GM MC ONCE, (Reported) Vit No.124/Iron/FA 1 Each Tablet, 1 EACH PO DAILY, (Reported) [Hydrocodone Bit/Acetaminophen] Y TAB, 2 TAB PO Q4H PRN for PAIN-MODERATE Prescribed by: FLAVIO ROLLINS on 03/09/17 0901 Patient Home Medication List Home Medication List Reviewed: Yes Review of Systems Constitutional: chills, fever (subjective), malaise EENTM: throat pain; No ear discharge, No hearing loss, No ear pain, No eye pain, No tearing, No vision loss, No dental problems, No hoarseness, No mouth pain Respiratory: No cough, No phlegm, No short of breath Cardiovascular: No chest pain, No edema Gastrointestinal: No abdominal pain, No nausea, No vomiting Genitourinary: No discharge, No dysuria; other (decreased urinary output over the past day.) : No Control/STD Prophylaxis: Other (tubal ligation) Musculoskeletal: back pain; No joint pain; neck pain (left anterior) Past Hdxiknp-Erzdml-Pqhljn Hx Patient Social History Alcohol Use: Denies Use Recreational Drug Use: No Smoking Status: Never a Smoker Recent Foreign Travel: No Contact w/Someone Who Travel: No Recent Infectious Disease Expo: No Recent Hopitalizations: No Immunizations Up To Date Tetanus Booster (TDap): Unknown Date of Influenza Vaccine: Mar 11, 2017 Seasonal Allergies Seasonal Allergies: No Past Medical History Surgeries: Yes Respiratory: No Cardiac: No Sexually Transmitted Disease: No Genitourinary: No Gastrointestinal: No Musculoskeletal: No Endocrine: Yes (GDM) HEENT: No Cancer: No Psychosocial: No Integumentary: Yes (scabbies, tx 3weeks ago) Blood Disorders: No Family Medical History Diabetes mellitus 19 MOTHER Physical Exam Vital Signs Vital Signs - First Documented 07/30/18 12:30 Temp 97.2 Pulse 103 Resp 18 B/P (MAP) 100/74 (83) Pulse Ox 95 O2 Delivery Room Air Capillary Refill : Less Than 3 Seconds Height, Weight, BMI Height: 5'9.00" Weight: 170lbs. 0.0oz. 77.034829il; 36.5 BMI Method:Stated General Appearance: Mild Distress, Obese HEENT: PERRL/EOMI, TMs Normal, Normal ENT Inspection, Pharyngeal Erythema, Tonsillar Enlargement, Other Neck: Full Range of Motion (dry mucous membranes), Normal Inspection, Supple, Tender Lateral (left anterior cervical lymph nodes are shotty, none greater than 1 cm palpable, tender to palpation.) Cardiovascular: Regular Rate, Rhythm, Normal Peripheral Pulses Respiratory: Normal Breath Sounds, No Accessory Muscle Use, No Respiratory Distress Peripheral Pulses: 2+ Dorsalis Pedis (R), 2+ Left Dors-Pedis (L) Gastrointestinal: Normal Bowel Sounds, Non Tender, Soft Extremity: Normal Capillary Refill, Normal Inspection, Normal Range of Motion, Non Tender, No Pedal Edema Neurologic/Psychiatric: Alert, Oriented x3 Skin: Normal Color, Warm/Dry Progress/Results/Core Measures Results/Orders Lab Results Laboratory Tests Test 07/30/18 12:56 07/30/18 13:56 07/30/18 15:39 Range/Units White Blood Count 11.7 H 4.3-11.0 10^3/uL Red Blood Count 4.55 4.35-5.85 10^6/uL Hemoglobin 13.1 11.5-16.0 G/DL Hematocrit 38 35-52 % Mean Corpuscular Volume 82 80-99 FL Mean Corpuscular Hemoglobin 29 25-34 PG Mean Corpuscular Hemoglobin Concent 35 32-36 G/DL Red Cell Distribution Width 12.9 10.0-14.5 % Platelet Count 481 H 130-400 10^3/uL Mean Platelet Volume 8.7 7.4-10.4 FL Neutrophils (%) (Auto) 69 42-75 % Lymphocytes (%) (Auto) 22 12-44 % Monocytes (%) (Auto) 8 0-12 % Eosinophils (%) (Auto) 1 0-10 % Basophils (%) (Auto) 0 0-10 % Neutrophils # (Auto) 8.1 H 1.8-7.8 X 10^3 Lymphocytes # (Auto) 2.5 1.0-4.0 X 10^3 Monocytes # (Auto) 0.9 0.0-1.0 X 10^3 Eosinophils # (Auto) 0.1 0.0-0.3 10^3/uL Basophils # (Auto) 0.0 0.0-0.1 10^3/uL Sodium Level 137 135-145 MMOL/L Potassium Level 4.1 3.6-5.0 MMOL/L Chloride Level 104 98-107 MMOL/L Carbon Dioxide Level 20 L 21-32 MMOL/L Anion Gap 13 5-14 MMOL/L Blood Urea Nitrogen 11 7-18 MG/DL Creatinine 0.77 0.60-1.30 MG/DL Estimat Glomerular Filtration Rate > 60 BUN/Creatinine Ratio 14 Glucose Level 120 H 70-105 MG/DL Lactic Acid Level 0.85 0.50-2.00 MMOL/L Calcium Level 9.6 8.5-10.1 MG/DL Corrected Calcium 9.4 8.5-10.1 MG/DL Total Bilirubin 0.7 0.1-1.0 MG/DL Aspartate Amino Transf (AST/SGOT) 52 H 5-34 U/L Alanine Aminotransferase (ALT/SGPT) 89 H 0-55 U/L Alkaline Phosphatase 223 H 40-136 U/L C-Reactive Protein High Sensitivity 8.77 H 0.00-0.50 MG/DL Total Protein 8.9 H 6.4-8.2 GM/DL Albumin 4.2 3.2-4.5 GM/DL Serum Test, Qualitative NEGATIVE NEGATIVE Group A Streptococcus Screen NEGATIVE NEGATIVE Urine Color YELLOW Urine Clarity CLEAR Urine pH 6.5 5-9 Urine Specific [place] 1.005 L 1.016-1.022 Urine Protein NEGATIVE NEGATIVE Urine Glucose (UA) NEGATIVE NEGATIVE Urine Ketones 2+ H NEGATIVE Urine Nitrite NEGATIVE NEGATIVE Urine Bilirubin NEGATIVE NEGATIVE Urine Urobilinogen NORMAL NORMAL MG/DL Urine Leukocyte Esterase NEGATIVE NEGATIVE Urine RBC (Auto) 3+ H NEGATIVE Urine RBC NONE /HPF Urine WBC NONE /HPF Urine Squamous Epithelial Cells 5-10 /HPF Urine Crystals NONE /LPF Urine Bacteria TRACE /HPF Urine Casts NONE /LPF Urine Mucus NEGATIVE /LPF Urine Culture Indicated NO My Orders Orders - TIP BIANCHI Ketorolac Injection (Toradol Injection) (07/30/18 14:00) Ed Iv/Invasive Line Start (07/30/18 13:47) Ns Iv 1000 Ml (Sodium Chloride 0.9%) (07/30/18 13:47) Ct Neck (Soft Tissue) W (07/30/18 13:47) Rapid Strep A Screen (07/30/18 13:47) Hs C Reactive Protein (07/30/18 13:49) Medications Given in ED Current Medications Medications Dose Ordered Sig/Parveen Route Start Time Stop Time Status Last Admin Dose Admin Ketorolac Tromethamine 30 mg ONCE ONCE IVP 07/30/18 14:00 07/30/18 14:01 DC 07/30/18 13:57 30 MG Vital Signs/I&O 07/30/18 12:30 Temp 97.2 Pulse 103 Resp 18 B/P (MAP) 100/74 (83) Pulse Ox 95 O2 Delivery Room Air Blood Pressure Mean: 83 Progress Progress Note #1: Time: 13:55 Progress Note Well-appearing adult female specimen with a story of sore throat, left anterior neck discomfort. She does have some dental caries that could be contributing to this. She has a history of pain going down her back and her right leg such as sciatic pain however is not reproducible on direct palpation she is not suffering from at this moment. We'll give her some Toradol. Rapid strep, septic workup with her history of subjective fevers and heart rate of 92 she does meet SIRS criteria. She does not have meningismus and is alert and oriented 4. She answers for herself and is coherent. No tenderness in the back of her neck. Progress Note #2: Time: 15:15 Progress Note Marginal labs no likely clinical significance as after some fluids and NSAIDs the patient says she feels a lot better. She has no evidence of meningismus on reexamination. Still no neurologic symptoms. Marginal elevations of her liver enzymes but no abdominal pain. So is possible she is gotten over a recent viral hepatitis such as H AV. We'll encourage her to follow up next week with primary care. Provide her with some Zofran and return precautions. Tylenol and Motrin for the discomfort. Diagnostic Imaging Diagonstic Imaging: CT Plain Films/CT/US/NM/MRI: c-spine (soft tissue of the neck with contrast), head (noncontrast) Comments [facility] [place], [place] NAME: MEG ARRIAGA [facility] REC#: [id number] PT STATUS: REG ER : 1985 PHYSICIAN: TIP BIANCHI MD ADMIT DATE: 07/30/18/ER Draft Date of Exam:07/30/18 CT NECK (SOFT TISSUE) W PROCEDURE: CT neck soft tissue with contrast. TECHNIQUE: Multiple contiguous axial images were obtained through the neck after the administration of contrast. Auto Exposure Controls were utilized during the CT exam to meet ALARA standards for radiation dose reduction. INDICATION: Left-sided neck pain. No prior studies are available for comparison. FINDINGS/IMPRESSION: Visualized intracranial structures are unremarkable. Posterior nasopharynx and oropharynx are unremarkable. Parapharyngeal fat planes are preserved. Epiglottis and larynx are unremarkable. No thyroid mass is detected. There are minimally prominent lymph nodes in the jugulodigastric regions bilaterally. Small posterior cervical nodes are present. There are no fluid collections identified. The parotid and submandibular glands appear to be symmetric bilaterally. Essentially unremarkable CT soft tissue neck study with contrast. No acute feature is detected. Dictated on workstation # [id number] Dict: 07/30/18 1418 Trans: 07/30/183 CVB [id number] Interpreted by: JING CHEEK MD Electronically signed by: [facility] [place] [place] NAME: MEG ARRIAGA [facility] REC#: [id number] PT STATUS: REG ER : 1985 PHYSICIAN: JOJO WYLIE [employer] ADMIT DATE: 07/30/18/ER Draft Date of Exam:07/30/18 CT HEAD WO PROCEDURE: CT head without contrast. TECHNIQUE: Multiple contiguous axial images were obtained through the brain without the use of intravenous contrast. Auto Exposure Controls were utilized during the CT exam to meet ALARA standards for radiation dose reduction. INDICATION: Headache. Left-sided neck pain. COMPARISON: None. FINDINGS: No CT evidence of territorial infarction. No intracranial hemorrhage, mass effect, hydrocephalus or extra-axial fluid collections. Osseous structures are intact. The paranasal sinuses and mastoids are clear. IMPRESSION: Negative noncontrast head CT. Dictated on workstation # [id number] Dict: 07/30/18 1413 Trans: 07/30/18 1418 CVB [id number] Interpreted by: LUIS REEVES MD Electronically signed by: Reviewed: Reviewed by Me Departure Impression Primary Impression: Viral syndrome Additional Impression: Bruise Disposition: 01 HOME, SELF-CARE Condition: Improved Departure-Patient Inst. Decision time for Depature: 16:28 Referrals: RU KRISHNAN DO (PCP/Family) Primary Care Physician Patient Instructions: Viral Syndrome (DC) Add. Discharge Instructions: Continue to drink plenty of fluids and use Tylenol 1000 mg every 8 hours and or ibuprofen 800 mg every 8 hours as necessary for body aches, fever or malaise. Use Zofran 4 mg every 6 hours as necessary for nausea or vomiting. If your symptoms persist follow-up with primary care later this week for reevaluation. All discharge instructions reviewed with patient and/or family. Voiced understanding. Scripts Ondansetron (Ondansetron Odt) 4 Mg Tab.rapdis 4 MG PO Q6H PRN for NAUSEA/VOMITING-1ST LINE, #10 TAB 0 Refills Prov: TIP BIANCHI 07/30/18 TIP BIANCHI July 30, 2018 13:55
[2018-07-30] MEDS ORDERED: KETOROLAC 30 MG/ML VIAL IVP ONE (14:00)
--- NOTE | 2018-07-30 14:18 | Diagnostic Imaging Report ---
PROCEDURE: CT head without contrast. TECHNIQUE: Multiple contiguous axial images were obtained through the brain without the use of intravenous contrast. Auto Exposure Controls were utilized during the CT exam to meet ALARA standards for radiation dose reduction. INDICATION: Headache. Left-sided neck pain. COMPARISON: None. FINDINGS: No CT evidence of territorial infarction. No intracranial hemorrhage, mass effect, hydrocephalus or extra-axial fluid collections. Osseous structures are intact. The paranasal sinuses and mastoids are clear. IMPRESSION: Negative noncontrast head CT. Dictated by: Dictated on workstation # [id number]
--- NOTE | 2018-07-30 14:23 | Diagnostic Imaging Report ---
PROCEDURE: CT neck soft tissue with contrast. TECHNIQUE: Multiple contiguous axial images were obtained through the neck after the administration of contrast. Auto Exposure Controls were utilized during the CT exam to meet ALARA standards for radiation dose reduction. INDICATION: Left-sided neck pain. No prior studies are available for comparison. FINDINGS/IMPRESSION: Visualized intracranial structures are unremarkable. Posterior nasopharynx and oropharynx are unremarkable. Parapharyngeal fat planes are preserved. Epiglottis and larynx are unremarkable. No thyroid mass is detected. There are minimally prominent lymph nodes in the jugulodigastric regions bilaterally. Small posterior cervical nodes are present. There are no fluid collections identified. The parotid and submandibular glands appear to be symmetric bilaterally. Essentially unremarkable CT soft tissue neck study with contrast. No acute feature is detected. Dictated by: Dictated on workstation # [id number]
[2018-07-30] MEDS ORDERED: ONDA4TAB11 PO (15:19)
[2018-07-30 16:05] LABS: BILIRUBIN,URINE NEGATIVE (NEGATIVE); CLARITY,URINE CLEAR; COLOR,URINE YELLOW; GLUCOSE, URINE (UA) NEGATIVE (NEGATIVE); KETONES,URINE 2+ (NEGATIVE); LEUKOCYTE ESTERASE ,URINE NEGATIVE (NEGATIVE); NITRITE,URINE NEGATIVE (NEGATIVE); PH,URINE 6.5 (5-9); PROTEIN,URINE NEGATIVE (NEGATIVE); UROBILINOGEN,URINE NORMAL (NORMAL)
[2018-07-30 16:16] LABS: BACTERIA,URINE TRACE /HPF
[2018-07-30 16:54] VITALS: BP 102/69
== END 2018-07-30 16:54 | disposition home or self-care (01) ==
LOC: EDUNIT# 12:25 → ER 12:27
DX: S10.93XA Contusion of unspecified part of neck, initial encounter (principal); S30.0XXA Contusion of lower back and pelvis, initial encounter; B34.9 Viral infection, unspecified; X58.XXXA Exposure to other specified factors, initial encounter
CPT/HCPCS: 36415; 70450; 70491; 80053; 81000; 83605; 84703; 85025; 86141; 87040; 87430

== ENCOUNTER 2022-12-31 03:26 | Emergency (ER) | payer BC ==
[~2022-12-31] VITALS: Ht 141 cm; Wt 78.0 kg
[~2022-12-31 03:26] MED LIST changes: +GLBR2.5T PO; -GLYB2.5T4 PO; +ONDA4TAB11 PO
[2022-12-31 04:17] LABS: BASOPHILS # (AUTO) 0.1 10^3/uL (0.0-0.1); BASOPHILS % (AUTO) 1 % (0-10); EOSINOPHILS # (AUTO) 0.1 10^3/uL (0.0-0.3); EOSINOPHILS % (AUTO) 1 % (0-10); HEMATOCRIT 39 % (35-52); HEMOGLOBIN 13.7 g/dL (11.5-16.0); LYMPHOCYTES % (AUTO) 18 % (12-44); MEAN CORPUSCULAR HEMOGLOBIN 29 pg (25-34); MEAN CORPUSCULAR HGB CONC 35 g/dL (32-36); MEAN CORPUSCULAR VOLUME 81 fL (80-99); MEAN PLATELET VOLUME 9.2 fL (9.0-12.2); MONOCYTES # (AUTO) 0.6 10^3/uL (0.0-1.0); MONOCYTES % (AUTO) 5 % (0-12); NEUTROPHILS # (AUTO) 8.3 10^3/uL (1.8-7.8); NEUTROPHILS % (AUTO) 74 % (42-75); PLATELET COUNT 341 10^3/uL (130-400); WHITE BLOOD COUNT 11.2 10^3/uL (4.3-11.0)
--- NOTE | 2022-12-31 04:26 | ED EENT ---
History of Present Illness General Chief Complaint: Facial Problems Stated Complaint: LEF SIDE OF NECK SWOLLEN Source: patient (LOGAN WILCOX DO) History of Present Illness Date Seen by Provider: Dec 31, 2022 Time Seen by Provider: 03:53 Initial Comments PT ARRIVES VIA POV FROM HOME WITH MALE C/O LEFT NECK/JAW PAIN AND SWELLING X 1 WEEK NO FEVER HAS HAD SOME THROAT PAIN AND DIFFICULTY SWALLOWING NO PROBLEMS HANDLING SALIVA NO PROBLEMS BREATHING WENT TO [facility] 12/26/22 FOR THIS PROBLEM AND WAS PRESCRIBED CLINDAMYCIN--NO TESTS WERE DONE NO IMPROVEMENT, AND AREA CONTINUES TO INCREASE IN SIZE AND PAIN NO HISTORY OF SIMILAR TOOK TYLENOL AT 1900 TONIGHT, MINIMAL RELIEF PT IS DIABETIC ON METFORMIN DOES NOT CHECK BLOOD SUGARS SHE DENIES ANY OTHER MEDICAL PROBLEMS LMP 12/11/22. NORMAL. S/P BTL. [facility] ([facility] WILCO[facility] DO) Allergies and Home Medications Allergies Coded Allergies: No Known Allergies (Verified Allergy, Mild, 11/11/05) Patient Home Medication List Home Medication List Reviewed: Yes (TAMMI CASSIDY MD) Docusate Sodium (Docusate Sodium) 100 Mg Capsule, 100 MG PO BID PRN for CONSTIPATION-1ST LINE Prescribed by: FLAVIO ROLLINS on 03/09/17 09 Doxycycline Hyclate (Doxycycline Hyclate) 100 Mg Tablet, 100 MG PO BID Prescribed by: TAMMI MARY on 12/31/22 1027 Ferrous Sulfate (Iron) 325 Mg Tablet, 325 MG PO DAILY, (Reported) Entered as Reported by: LEDY BURGOS on 03/08/172233 Hydroxyzine HCl (Hydroxyzine HCl) 25 Mg Tablet, 25 MG PO PRN, (Reported) Entered as Reported by: LEDY BURGOS on 03/08/172237 Ibuprofen (Ibuprofen) 800 Mg Tablet, 800 MG PO Q6HR Prescribed by: FLAVIO ROLLINS on 03/09/17 09 Metformin HCl (Metformin HCl) 500 Mg Tablet, 500 MG PO BID, (Reported) Entered as Reported by: LEDY BURGOS on 03/08/172236 Ondansetron (Ondansetron Odt) 4 Mg Tab.rapdis, 4 MG PO Q6H PRN for NAUSEA/VOMITING-1ST LINE Prescribed by: TIP BIANCHI on 07/30/18 1519 Permethrin (Permethrin) 1 Gm Liquid, 1 GM MC ONCE, (Reported) Entered as Reported by: LEDY BURGOS on 03/08/172234 Vit No.124/Iron/FA ( Vitamin Tablet) 1 Each Tablet, 1 EACH PO DAILY, (Reported) Entered as Reported by: LEDY BURGOS on 03/08/172231 [Hydrocodone Bit/Acetaminophen] Y TAB, 2 TAB PO Q4H PRN for PAIN-MODERATE Prescribed by: FLAVIO ROLLINS on 03/09/17 0901 Review of Systems Review of Systems Constitutional: no symptoms reported Eyes: No Symptoms Reported Nose: no symptoms reported Mouth: no symptoms reported Throat: see HPI Respiratory: no symptoms reported Cardiovascular: no symptoms reported Gastrointestinal: no symptoms reported Musculoskeletal: no symptoms reported Skin: no symptoms reported Neurological: No Symptoms Reported Hematologic/Lymphatic: No Symptoms Reported Immunological/Allergic: no symptoms reported (LOGAN WILCOX DO) Past Obenjjb-Wyrdtr-Tsatec Hx Patient Social History Tobacco Use?: No Smoking Status: Never a Smoker Smokeless Tobacco Frequency: Never a User Use of E-Cig and/or Vaping dev: No Use of E-Cig and/or Vaping Norm: Never a User Substance use?: No Alcohol Use?: No (LOGAN WILCOX DO) Immunizations Up To Date Tetanus Booster (TDap): Unknown (LOGAN WILCOX DO) Seasonal Allergies Seasonal Allergies: No (LOGAN WILCOX DO) Past Medical History Surgeries: Yes ( X 4, BTL) Section, Tubal Ligation Respiratory: No Cardiac: No Neurological: No : No Last Menstrual Period: Dec 11, 2022 Reproductive Disorders: No 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 0.0oz. 77.380697ea; 36.5 BMI Method:Stated General Appearance: WD/WN, no apparent distress Eyes: bilateral eye normal inspection, bilateral eye PERRL, bilateral eye EOMI Ears: bilateral ear auricle normal, bilateral ear canal normal, bilateral ear TM normal Nose: normal inspection Mouth/Throat: normal mouth inspection, pharynx normal; No dental tenderness, No excessive drooling, No foreign body; mandibular swelling (ON LEFT); No maxillary swelling, No tongue swollen, No tonsillar swelling, No trismus, No uvula swelling, No voice changes; other (NO SUBLINGUAL SWELLING OR MASSES; ) Neck: full range of motion, supple, lymphadenopathy (L), other (LEFT MADIBULAR AND SUBMANDIBULAR AREA WITH SIGNIFICANT SWELLING AND FIRM MASS, VERY TENDER. OVERLYING SKIN IS NORMAL. 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, no motor/sensory deficits, alert, normal mood/affect, oriented x 3 Skin: normal color (PT IS DARK SKINNED), warm/dry; No rash (DIANE,LOGAN K DO) Progress/Results/Core Measures Results/Orders Lab Results Laboratory Tests Test 12/31/22 03:59 12/31/22 04:05 12/31/22 10:45 Range/Units Influenza Type A (RT-PCR) Not Detected Not Detecte Influenza Type B (RT-PCR) Not Detected Not Detecte SARS-CoV-2 RNA (RT-PCR) Not Detected Not Detecte Group A Streptococcus Screen Not Detected NotDetected White Blood Count 11.2 H 4.3-11.0 10^3/uL Red Blood Count 4.79 3.80-5.11 10^6/uL Hemoglobin 13.7 11.5-16.0 g/dL Hematocrit 39 35-52 % Mean Corpuscular Volume 81 80-99 fL Mean Corpuscular Hemoglobin 29 25-34 pg Mean Corpuscular Hemoglobin Concent 35 32-36 g/dL Red Cell Distribution Width 13.0 10.0-14.5 % Platelet Count 341 130-400 10^3/uL Mean Platelet Volume 9.2 9.0-12.2 fL Immature Granulocyte % (Auto) 1 % Neutrophils (%) (Auto) 74 42-75 % Lymphocytes (%) (Auto) 18 12-44 % Monocytes (%) (Auto) 5 0-12 % Eosinophils (%) (Auto) 1 0-10 % Basophils (%) (Auto) 1 0-10 % Neutrophils # (Auto) 8.3 H 1.8-7.8 10^3/uL Lymphocytes # (Auto) 2.0 1.0-4.0 10^3/uL Monocytes # (Auto) 0.6 0.0-1.0 10^3/uL Eosinophils # (Auto) 0.1 0.0-0.3 10^3/uL Basophils # (Auto) 0.1 0.0-0.1 10^3/uL Immature Granulocyte # (Auto) 0.1 0.0-0.1 10^3/uL Erythrocyte Sedimentation Rate 30 H 0-20 MM/HR Sodium Level 134 L 135-145 MMOL/L Potassium Level 3.2 L 3.6-5.0 MMOL/L Chloride Level 104 98-107 MMOL/L Carbon Dioxide Level 19 L 21-32 MMOL/L Anion Gap 11 5-14 MMOL/L Blood Urea Nitrogen 8 7-18 MG/DL Creatinine 0.75 0.60-1.30 MG/DL Estimat Glomerular Filtration Rate 104 BUN/Creatinine Ratio 11 Glucose Level 287 H 70-105 MG/DL Calcium Level 8.6 8.5-10.1 MG/DL Corrected Calcium 8.8 8.5-10.1 MG/DL Total Bilirubin 0.4 0.1-1.0 MG/DL Aspartate Amino Transf (AST/SGOT) 22 5-34 U/L Alanine Aminotransferase (ALT/SGPT) 28 0-55 U/L Alkaline Phosphatase 151 H 40-136 U/L C-Reactive Protein High Sensitivity 2.27 H 0.00-0.50 MG/DL Total Protein 8.0 6.4-8.2 GM/DL Albumin 3.7 3.2-4.5 GM/DL Amylase Level 28 25-125 U/L Lipase 27 8-78 U/L TSH [place] Testing 1.47 0.35-4.94 UIU/ML Serum Test, Qualitative NEGATIVE NEGATIVE Monoscreen NEGATIVE NEGATIVE (TAMMI CASSIDY MD) My Orders Orders - TAMMI CASSIDY MD Potassium Chloride (Tablet) (Potassium C (12/31/22 10:00) Tb Gold Quantiferon Plus (12/31/22 09:53) (TAMMI CASSIDY MD) Medications Given in ED (TAMMI CASSIDY MD) Vital Signs/I&O (TAMMI CASSIDY MD) Progress Progress Note : Progress Note VITALS ON ARRIVAL: TEMP 37.1, HR 95, RR 16, BP 137/95, O2 SAT 97% ON ROOM AIR GIVEN: -IV FLUIDS -TORADOL LABS: -CBC NORMAL WITH WBC 11.2 -CMP WIHT NA 134, K 3.2, CO2 19, ANION GAP 11, BUN 8, CR 0.75, GLU 287 -AMYLASE/LIPASE NORMAL -TSH NORMAL AT 1.47 -SED RATE 30, CRP 2.27 -HCG NEGATIVE -MONO NEGATIVE -STREP NEGATIVE -COVID/FLU NEGATIVE CT NECK SOFT TISSUES (LOGAN WILCOX DO) Progress Note : Progress Note Care of this patient was assumed from Dr. Wilcox at shift change with CT pending. CT was viewed by me and inflamed lymph node was appreciated. Labs were reviewed. There was scant WBC elevation at 11.2. ESR at 30 and CRP at 2.27 were scantly elevated. Potassium was low at 3.2 and replaced. Glucose was elevated at 287. test was negative. Flu, COVID, strep and mono tests were negative. Dr. Montoya, general surgeon occasional babysitter, was consulted and presented to the ER to evaluate the patient personally. He recommended adding doxycycline and follow-up in the clinic. If symptoms do not significantly improve, he may recommend excision. Plan explained to patient. See discharge instructions for further discussion. (TAMMI CASSIDY MD) Diagnostic Imaging Diagonstic Imaging: CT Comments NAME: MEG [facility] REC#: [id number] PT STATUS: REG ER : 1985 PHYSICIAN: LOGAN WILCOX DO ADMIT DATE: 12/31/22/ER Signed Date of Exam:12/31/22 CT NECK (SOFT TISSUE) W PROCEDURE: CT neck soft tissue with contrast. TECHNIQUE: Multiple contiguous axial images were obtained through the neck after the administration of contrast. Auto Exposure Controls were utilized during the CT exam to meet ALARA standards for radiation dose reduction. INDICATION: Left jaw pain and neck swelling. The visualized intracranial structures are unremarkable. Posterior nasopharynx and oropharynx are unremarkable. The epiglottis and larynx are unremarkable. No thyroid mass is detected. Submandibular and parotid glands appear to be symmetric bilaterally. There is a complex mixed density mass anterolateral to the left submandibular gland measuring 2.0 x 2.9 cm. This has central low attenuation and may represent a suppurative lymph node versus small abscess. There are some enlarged lymph nodes in the left jugulodigastric region as well. No other fluid collections or abscesses are seen. IMPRESSION: A probable suppurative lymph node in the left submandibular location as well as some enlarged lymph nodes in the left jugulodigastric and posterior cervical location. No other significant abnormality is detected. Dictated by: Dictated on workstation # [id number] Dict: 12/31/22 0629 Trans: 12/31/221649 [facility] [id number] Interpreted by: JING CHEEK MD Electronically signed by: JING CHEEK MD 12/31/22 9932 (TAMMI CASSIDY MD) Departure Impression Primary Impression: Suppurative lymphadenitis Disposition: 01 HOME, SELF-CARE Condition: Stable Departure-Patient Inst. Decision time for Depature: 10:24 (TAMMI CASSIDY MD) Referrals: NO,LOCAL PHYSICIAN (PCP/Family) Primary Care Physician Patient Instructions: Lymphadenitis Add. Discharge Instructions: Your pain and swelling appears to be from an infected lymph node. Please continue the clindamycin as previously prescribed and add doxycycline as prescribed from the ER. For pain you may take Tylenol (acetaminophen) up to 1000 mg every 6 hours as needed. For additional pain control you may add ibuprofen up to 600 mg every 6 hours as needed. Please call Dr. Montoya's office on Monday morning to schedule a follow-up appointment to be seen in the next [address] Montoya's office. If you are still having trouble and the lymph node is not improving, he may make arrangements to remove the lymph node. Please note that you may have some sun sensitivity to your skin while on doxycycline. You should also avoid becoming while on doxycycline. Return to the ER if you have worsening symptoms despite following these instructions, especially if you have difficulty breathing or swallowing, get fevers over 100 degrees, or have any other significant new symptoms. All discharge instructions reviewed with patient and/or family. Voiced understanding. Scripts Doxycycline Hyclate (Doxycycline Hyclate) 100 Mg Tablet 100 MG PO BID, #20 TAB 0 Refills Prov: TAMMI CASSIDY MD 12/31/22 Copy Copies To 1: RUFINA MONTOYA LISA K DO Dec 31, 2022 04:26 TAMMI CASSIDY MD Dec 31, 2022 09:57
[2022-12-31 04:34] LABS: ALBUMIN 3.7 GM/DL (3.2-4.5); POTASSIUM 3.2 MMOL/L (3.6-5.0)
[2022-12-31 04:35] LABS: CALCIUM 8.6 MG/DL (8.5-10.1)
[2022-12-31 04:39] LABS: BILIRUBIN,TOTAL 0.4 MG/DL (0.1-1.0); ERYTHROCYTE SEDIMENTATION RATE 30 MM/HR (0-20)
[2022-12-31 04:40] LABS: CREATININE SERUM 0.75 MG/DL (0.60-1.30)
[2022-12-31] MEDS ORDERED: NS IV 1000 ML 1,000 ML IV SCH (05:00)
[2022-12-31 05:04] LABS: TSH (THYROID ANALYZER) 1.47 UIU/ML (0.35-4.94)
[2022-12-31] MEDS ORDERED: CATHETER FLUSH 10 ML SYR IV PRN (05:30)
[2022-12-31] MEDS ORDERED: IOHEXOL 350 MG/ML 100 ML (OMNIPAQUE 350) VIAL IV ONE (05:30)
[2022-12-31] MEDS ORDERED: NS 100 ML (IVPB) BAG IV ONE (05:30)
[2022-12-31] MEDS ORDERED: HOLD METFORMIN - RECEIVED CONTRAST 20 ML VIAL IV SCH (05:30)
--- NOTE | 2022-12-31 06:47 | Diagnostic Imaging Report ---
PROCEDURE: CT neck soft tissue with contrast. TECHNIQUE: Multiple contiguous axial images were obtained through the neck after the administration of contrast. Auto Exposure Controls were utilized during the CT exam to meet ALARA standards for radiation dose reduction. INDICATION: Left jaw pain and neck swelling. The visualized intracranial structures are unremarkable. Posterior nasopharynx and oropharynx are unremarkable. The epiglottis and larynx are unremarkable. No thyroid mass is detected. Submandibular and parotid glands appear to be symmetric bilaterally. There is a complex mixed density mass anterolateral to the left submandibular gland measuring 2.0 x 2.9 cm. This has central low attenuation and may represent a suppurative lymph node versus small abscess. There are some enlarged lymph nodes in the left jugulodigastric region as well. No other fluid collections or abscesses are seen. IMPRESSION: A probable suppurative lymph node in the left submandibular location as well as some enlarged lymph nodes in the left jugulodigastric and posterior cervical location. No other significant abnormality is detected. Dictated by: Dictated on workstation # [id number]
[2022-12-31] MEDS ORDERED: POTASSIUM CHLORIDE 10 MEQ TABLET PO ONE (10:00)
[2022-12-31] MEDS ORDERED: DOXY100T2 PO (10:27)
[2022-12-31 10:48] VITALS: BP 141/94
--- NOTE | 2022-12-31 13:02 | Consultation - Surgery ---
History of Present Illness History of Present Illness Patient Consulted On(celina/time) 12/31/22 12:56 Time Seen by Provider: 09:49 History of Present Illness Surgery asked to consult regarding swelling left neck. HPI per ED: PT ARRIVES VIA POV FROM HOME WITH MALE, C/O LEFT NECK/JAW PAIN AND SWELLING X 1 WEEK, NO FEVER, HAS HAD SOME THROAT PAIN AND DIFFICULTY SWALLOWING, NO PROBLEMS HANDLING SALIVA, NO PROBLEMS BREATHING [facility]/22 FOR THIS PROBLEM AND WAS PRESCRIBED CLINDAMYCIN--NO TESTS WERE DONE, NO IMPROVEMENT, AND AREA CONTINUES TO INCREASE IN SIZE AND PAIN, NO HISTORY OF SIMILAR TOOK TYLENOL AT 1900 TONIGHT, MINIMAL RELIEF. PT IS DIABETIC ON METFORMIN, DOES NOT CHECK BLOOD SUGARS, SHE DENIES ANY OTHER MEDICAL PROBLEMS When I spoke to pt she complained of pain in the left neck/jaw area; rating it 6-7 out of 10. Mostly a dull ache and she came to ER because it was not getting any better. She is from the [facility], but has lived here for 21 years. She denies any sick contacts. She does not think she has any other lymph nodes (or lumps) anywhere else; does not have a cat. She does not feel run down and is making saliva. Allergies and Home Medications Allergies Coded Allergies: No Known Allergies (Verified Allergy, Mild, 11/11/05) Patient Home Medication List Home Medication List Reviewed: Yes Docusate Sodium (Docusate Sodium) 100 Mg Capsule, 100 MG PO BID PRN for CONSTIPATION-1ST LINE Prescribed by: FLAVIO ROLLINS on 03/09/17 09 Doxycycline Hyclate (Doxycycline Hyclate) 100 Mg Tablet, 100 MG PO BID Prescribed by: TAMMI MARY on 12/31/22 1027 Ferrous Sulfate (Iron) 325 Mg Tablet, 325 MG PO DAILY, (Reported) Entered as Reported by: LEDY BURGOS on 03/08/17 223 Hydroxyzine HCl (Hydroxyzine HCl) 25 Mg Tablet, 25 MG PO PRN, (Reported) Entered as Reported by: LEDY BURGOS on 03/08/17 223 Ibuprofen (Ibuprofen) 800 Mg Tablet, 800 MG PO Q6HR Prescribed by: FLAVIO ROLLINS on 03/09/17 09 Metformin HCl (Metformin HCl) 500 Mg Tablet, 500 MG PO BID, (Reported) Entered as Reported by: LEDY BURGOS on 03/08/172236 Ondansetron (Ondansetron Odt) 4 Mg Tab.rapdis, 4 MG PO Q6H PRN for NAUSEA/VOMITING-1ST LINE Prescribed by: TIP BIANCHI on 07/30/18 151 Permethrin (Permethrin) 1 Gm Liquid, 1 GM MC ONCE, (Reported) Entered as Reported by: LEDY BURGOS on 03/08/172234 Vit No.124/Iron/FA ( Vitamin Tablet) 1 Each Tablet, 1 EACH PO DAILY, (Reported) Entered as Reported by: LEDY BURGOS on 03/08/172231 [Hydrocodone Bit/Acetaminophen] Y TAB, 2 TAB PO Q4H PRN for PAIN-MODERATE Prescribed by: FLAVIO ROLLINS on 03/09/17 09 Past Ldcenab-Togygi-Rimvue Hx Patient Social History Smoking Status: Never a Smoker Recent Hopitalizations: No Alcohol Use?: No Immunizations Up To Date Tetanus Booster (TDap): Unknown Date of Influenza Vaccine: Mar 11, 2017 Seasonal Allergies Seasonal Allergies: No Surgeries History of Surgeries: Yes ( X 4, BTL) Surgeries: Section, Tubal Ligation Respiratory History of Respiratory Disorde: No Cardiovascular History of Cardiac Disorders: No Neurological History of Neurological Disord: No Reproductive System : No Hx Reproductive Disorders: No Sexually Transmitted Disease: No 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 Genitourinary History of Genitourinary Disor: No Gastrointestinal History of Gastrointestinal Di: No Musculoskeletal History of Musculoskeletal Dis: No Endocrine History of Endocrine Disorders: Yes Endocrine Disorders: Diabetes, Non-Insulin dep HEENT History of HEENT Disorders: No Cancer History of Cancer: No Psychosocial History of Psychiatric Problem: No Integumentary History of Skin or Integumenta: Yes (SCABIES) Blood Transfusions History of Blood Disorders: No Family Medical History Significant Family History: Diabetes Family Medial History: Diabetes mellitus 19 MOTHER Review of Systems-General Constitutional: No chills, No diaphoresis, No malaise EENTM: mouth swelling; No blurred vision, No double vision, No dental problems, No epistaxis Respiratory: No cough, No dyspnea on exertion Cardiovascular: No chest pain, No palpitations Gastrointestinal: No abdominal pain, No nausea, No vomiting Genitourinary: No dysuria, No frequency, No hematuria Musculoskeletal: No joint swelling, No muscle stiffness Skin: No change in color, No change in hair/nails Psychiatric/Neurological: Denies Anxiety, Denies Depressed, Denies Seizure, Denies Tremors Physical Exam-General Problems Physical Exam Vital Signs Vital Signs - First Documented 12/31/22 12/31/22 03:55 10:48 Temp 37.1 Pulse 95 Resp 16 B/P (MAP) 137/95 (109) Pulse Ox 98 Capillary Refill : Less Than 3 Seconds General Appearance: WD/WN, mild distress Eyes: Bilateral Eye PERRL, Bilateral Eye EOMI HEENT: pharynx normal; No scleral icterus (R), No scleral icterus (L); other (bottom teeth look fine, upper left teeth look bad (dental caries??) ) Neck: No lymphadenopathy (R); lymphadenopathy (L), other ( Left side under mandible is very swollen, firm, tender but not really red) Respiratory: lungs clear, normal breath sounds, no respiratory distress, no accessory muscle use Cardiovascular: regular rate, rhythm, no murmur Gastrointestinal: non tender, soft Extremities: no pedal edema, no calf tenderness Neurologic/Psychiatric: alert, normal mood/affect, oriented x 3 Skin: normal color, warm/dry Lymphatic: no adenopathy (axilla or supra-clavicular) Data Review Labs Laboratory Tests 12/31/22 03:59: Influenza Type A (RT-PCR) Not Detected, Influenza Type B (RT-PCR) Not Detected, SARS-CoV-2 RNA (RT-PCR) Not Detected, Group A Streptococcus Screen Not Detected 12/31/22 04:05: White Blood Count 11.2H, Red Blood Count 4.79, Hemoglobin 13.7, Hematocrit 39, Mean Corpuscular Volume 81, Mean Corpuscular Hemoglobin 29, Mean Corpuscular Hemoglobin Concent 35, Red Cell Distribution Width 13.0, Platelet Count 341, Mean Platelet Volume 9.2, Immature Granulocyte % (Auto) 1, Neutrophils (%) (Auto) 74, Lymphocytes (%) (Auto) 18, Monocytes (%) (Auto) 5, Eosinophils (%) (Auto) 1, Basophils (%) (Auto) 1, Neutrophils # (Auto) 8.3H, Lymphocytes # (Auto) 2.0, Monocytes # (Auto) 0.6, Eosinophils # (Auto) 0.1, Basophils # (Auto) 0.1, Immature Granulocyte # (Auto) 0.1, Erythrocyte Sedimentation Rate 30H, Sodium Level 134L, Potassium Level 3.2L, Chloride Level 104, Carbon Dioxide Level 19L, Anion Gap 11, Blood Urea Nitrogen 8, Creatinine 0.75, Estimat Glomerular Filtration Rate 104, BUN/Creatinine Ratio 11, Glucose Level 287H, Calcium Level 8.6, Corrected Calcium 8.8, Total Bilirubin 0.4, Aspartate Amino Transf (AST/SGOT) 22, Alanine Aminotransferase (ALT/SGPT) 28, Alkaline Phosphatase 151H, C-Reactive Protein High Sensitivity 2.27H, Total Protein 8.0, Albumin 3.7, Amylase Level 28, Lipase 27, TSH [place] Testing 1.47, Serum Test, Qualitative NEGATIVE, Monoscreen NEGATIVE 12/31/22 10:45: Radiology Date of Exam:12/31/22 CT NECK (SOFT TISSUE) W PROCEDURE: CT neck soft tissue with contrast. TECHNIQUE: Multiple contiguous axial images were obtained through the neck after the administration of contrast. Auto Exposure Controls were utilized during the CT exam to meet ALARA standards for radiation dose reduction. INDICATION: Left jaw pain and neck swelling. The visualized intracranial structures are unremarkable. Posterior nasopharynx and oropharynx are unremarkable. The epiglottis and larynx are unremarkable. No thyroid mass is detected. Submandibular and parotid glands appear to be symmetric bilaterally. There is a complex mixed density mass anterolateral to the left submandibular gland measuring 2.0 x 2.9 cm. This has central low attenuation and may represent a suppurative lymph node versus small abscess. There are some enlarged lymph nodes in the left jugulodigastric region as well. No other fluid collections or abscesses are seen. IMPRESSION: A probable suppurative lymph node in the left submandibular location as well as some enlarged lymph nodes in the left jugulodigastric and posterior cervical location. No other significant abnormality is detected. Dictated on workstation # [id number] Dict: 12/31/2229 Trans: 12/31/2245 CV [id number] Interpreted by: JING CHEEK MD Assessment/Plan Assessment/Plan Assessment/Plan Left Submandibular Lymph Node - suppurative Pt was told to finish off the Clindamycin and will start on some Doxycycline; follow up in my office on . If it gets smaller we may be able to remove it and then send to pathology for better diagnosis. In the meantime we sent off for TB and may need to order Monospot. It could be from her diabetes or even the salivary gland; hard to tell. RUFINA MONTOYA DO Dec 31, 2022 13:02
== END 2022-12-31 10:48 | disposition home or self-care (01) ==
LOC: EDUNIT# 03:26 → ER 03:32
DX: L04.0 Acute lymphadenitis of face, head and neck (principal); E11.9 Type 2 diabetes mellitus without complications; Z79.84 Long term (current) use of oral hypoglycemic drugs; Z20.822 Contact with and (suspected) exposure to COVID-19
CPT/HCPCS: 36415; 70491; 80053; 82150; 83690; 84443; 84703; 85025; 85652; 86141; 86308; 86480; 87430; 87636; 93041